=== PATIENT | male | born 1995 | race Caucasian/White ===

== ENCOUNTER 2018-06-28 10:38 | Emergency (ER) | payer MEDICAID ==
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
[2018-06-28 12:38] VITALS: BP 125/80
== END 2018-06-28 12:38 | disposition home or self-care (01) ==
DX: S09.90XA Unspecified injury of head, initial encounter (principal); F17.200 Nicotine dependence, unspecified, uncomplicated; W01.198A Fall on same level from slipping, tripping and stumbling with subsequent striking against other object, initial encounter; Y92.149 Unspecified place in prison as the place of occurrence of the external cause; Y99.8 Other external cause status; Y93.89 Activity, other specified

== ENCOUNTER 2018-06-28 19:02 | Emergency (ER) | payer MEDICAID ==
[2018-06-28 19:08] VITALS: BP 137/88
[2018-06-28] MEDS ORDERED: MECLIZINE HCL 25 MG TAB ONE (19:41)
[2018-06-28] MEDS ORDERED: MECLIZINE HCL 25 MG TAB PO ONE (19:42)
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
== END 2018-06-28 19:56 | disposition home or self-care (01) ==
DX: R42 Dizziness and giddiness (principal); F17.200 Nicotine dependence, unspecified, uncomplicated

== ENCOUNTER 2018-07-01 17:57 | Emergency (ER) | payer MEDICAID ==
--- NOTE | 2018-07-01 19:18 | EDPHY ---
H & P Stated Complaint: Dizzy, Nauseated Time Seen by Provider: 07/01/18 19:17 HPI/ROS: CHIEF COMPLAINT: [ ] HISTORY OF PRESENT ILLNESS: [Need 4: Location, Duration, Severity, Quality, Context, Timing Modifying Factors, Associated S&S] REVIEW OF SYSTEMS: A comprehensive 10 point review of systems is otherwise negative aside from elements mentioned in the history of present illness. Source: Patient - Personal History Current Tetanus Diphtheria and Acellular Pertussis (TDAP): Yes Tetanus Vaccine Date: 2015 - Medical/Surgical History Hx Asthma: No Hx Chronic Respiratory Disease: No Hx Diabetes: No Hx Cardiac Disease: No Hx Renal Disease: No Hx Cirrhosis: No Hx Alcoholism: No Hx HIV/AIDS: No Hx Splenectomy or Spleen Trauma: No Other PMH: TBI 2014 - Social History Smoking Status: Current every day smoker - Physical Exam Exam: General Appearance: [Alert, no distress] Eyes: [Pupils equal and round no pallor or injection] ENT, Mouth: [Mucous membranes moist] Respiratory: [There are no retractions, lungs are clear to auscultation] Cardiovascular: [Regular rate and rhythm] Gastrointestinal: [Abdomen is soft and nontender, no masses, bowel sounds normal] Neurological: [A&O, normal motor function, normal sensory exam, normal cranial nerves] Skin: [Warm and dry, no rashes] Musculoskeletal: [Neck is supple nontender] Extremities: [symmetrical, full range of motion] Psychiatric: [Patient is oriented X 3, there is no agitation] Constitutional: Initial Vital Signs Temperature (C) 36.7 C 07/01/18 18:00 Heart Rate 106 H 07/01/18 18:00 Respiratory Rate 18 07/01/18 18:00 Blood Pressure 148/78 H 07/01/18 18:00 O2 Sat (%) 96 07/01/18 18:00 O2 Delivery Mode Room Air Allergies/Adverse Reactions: No Known Allergies Allergy (Verified 07/01/18 18:02) Home Medications: Medication Instructions Recorded Depakote 06/28/18 Guanfacine HCl ER 06/28/18 Meclizine HCl [Meclizine HCl 25 mg 25 mg PO TID #11 tab 06/28/18 (RX,OTC)] OLANZapine 06/28/18 traZODone 06/28/18 Departure - Departure Referrals: NONE *PRIMARY CARE P,. [Primary Care Provider] - As per Instructions
--- NOTE | 2018-07-01 19:45 | EDPHY ---
H & P Stated Complaint: Dizzy, Nauseated Time Seen by Provider: 07/01/18 19:17 HPI/ROS: CHIEF COMPLAINT: Vertigo HISTORY OF PRESENT ILLNESS: The patient presents to the ED following ongoing vertigo after a minor head injury that occurred several days ago. He was seen in the ED and had a CT scan which demonstrated no evidence of an intracranial hemorrhage. He does have evidence of a fairly significant remote traumatic brain injury. The patient was given meclizine which she has been using with some improvement of his symptoms. He presents today complaining of nausea with his vertigo. The patient denies any neck pain. The patient denies any focal numbness or weakness. The patient denies additional acute complaints. REVIEW OF SYSTEMS: A comprehensive 10 point review of systems is otherwise negative aside from elements mentioned in the history of present illness. Source: Patient - Personal History Current Tetanus Diphtheria and Acellular Pertussis (TDAP): Yes Tetanus Vaccine Date: 2015 - Medical/Surgical History Hx Asthma: No Hx Chronic Respiratory Disease: No Hx Diabetes: No Hx Cardiac Disease: No Hx Renal Disease: No Hx Cirrhosis: No Hx Alcoholism: No Hx HIV/AIDS: No Hx Splenectomy or Spleen Trauma: No Other PMH: TBI 2014 - Social History Smoking Status: Current every day smoker - Physical Exam Exam: General Appearance: Alert, no distress Eyes: Pupils equal and round no pallor or injection ENT, Mouth: Mucous membranes moist Respiratory: There are no retractions, lungs are clear to auscultation Cardiovascular: Regular rate and rhythm Gastrointestinal: Abdomen is soft and nontender, no masses, bowel sounds normal Neurological: A&O, normal motor function, normal sensory exam, normal cranial nerves, GCS 15, no horizontal nystagmus appreciated Skin: Warm and dry, no rashes Musculoskeletal: Neck is supple nontender Extremities: symmetrical, full range of motion Psychiatric: Patient is oriented X 3, there is no agitation Constitutional: Initial Vital Signs Temperature (C) 36.7 C 07/01/18 18:00 Heart Rate 106 H 07/01/18 18:00 Respiratory Rate 18 07/01/18 18:00 Blood Pressure 148/78 H 07/01/18 18:00 O2 Sat (%) 96 07/01/18 18:00 O2 Delivery Mode Room Air Allergies/Adverse Reactions: No Known Allergies Allergy (Verified 07/01/18 18:02) Home Medications: Medication Instructions Recorded Depakote 06/28/18 Guanfacine HCl ER 06/28/18 Meclizine HCl [Meclizine HCl 25 mg 25 mg PO TID #11 tab 06/28/18 (RX,OTC)] OLANZapine 06/28/18 traZODone 06/28/18 Ondansetron Odt [Zofran Odt] 4 mg PO Q4PRN PRN #20 tab 07/01/18 Medical Decision Making ED Course/Re-evaluation: The patient presents to the ED with mild nausea and vertigo in the setting of a recent minor head injury and a fairly significant remote traumatic brain injury. I reviewed the patient's CT scan prior ED workup. I do not feel that additional neuro imaging is indicated at this point time. The patient has no neck complaints and otherwise has a unremarkable neurologic exam. I detect no obvious bruit on exam. The patient will be given a prescription for Zofran. He has been advised to follow up with our concussion specialist for any ongoing symptoms. Departure - Departure Disposition: Home, Routine, Self-Care Clinical Impression: Vertigo Condition: Good Instructions: Vertigo (ED) Additional Instructions: 1. Please follow up with the concussion specialist you have been referred to for any ongoing symptoms of dizziness. 2. You can use Zofran as needed for nausea. 3. Continue meclizine as needed for dizziness. Referrals: Mimi Mg MD [Medical Doctor] - As per Instructions
[2018-07-01 20:04] VITALS: BP 149/81
== END 2018-07-01 20:13 | disposition home or self-care (01) ==
DX: R42 Dizziness and giddiness (principal); R11.0 Nausea; F17.200 Nicotine dependence, unspecified, uncomplicated; Z87.828 Personal history of other (healed) physical injury and trauma

== ENCOUNTER 2018-08-04 18:07 | Emergency (ER) | payer MEDICAID ==
[2018-08-04 18:12] VITALS: BP 116/107
[2018-08-04] MEDS ORDERED: PENICILLIN VK 250MG PREPACK#6 BTL TAKEHOME ONE (18:20)
[2018-08-04] MEDS ORDERED: IBUPROFEN 600 MG TAB PO ONE (18:20)
--- NOTE | 2018-08-04 18:20 | EDPHY ---
H & P Smoking Status: Heavy smoker Time Seen by Provider: 08/04/18 18:13 HPI/ROS: CHIEF COMPLAINT: Dental pain HISTORY OF PRESENT ILLNESS: 22-year-old male presents to the emergency department complaining of chronic dental pain. The patient states that he saw a dentist about a month ago and was going to have some teeth extracted however then ended up in [facility] and is now on a work release program. He has not followed up with a dentist. He has been complaining of pain for at least 1 month or longer. He has a history of an old fractured tooth as well. He has been taking ibuprofen for pain in his requesting a dental referral. ROS: Denies facial swelling, dysphagia, fever. (Angelina Sanabria) Past Medical/Surgical History: Traumatic brain injury, history of substance abuse (Angelina Sanabria) Social History: Single (Angelina Sanabria) Physical Exam: Examination of the patient reveals no apparent distress. He is afebrile and very pleasant. He has no facial swelling. He has poor dentition. He has a fractured tooth right lower 3rd molar. He also has fractured tooth to his right upper 3rd molar. No surrounding gum swelling or say anything to suggest abscess. The left lower 3rd molar reveals small hole in the tooth. No evidence of abscess. No lymphadenopathy. (Angelina Sanabria) Constitutional: Initial Vital Signs Temperature (C) 37.2 C 08/04/18 18:10 Heart Rate 118 H 08/04/18 18:10 Respiratory Rate 18 08/04/18 18:10 Blood Pressure 116/107 H 08/04/18 18:10 O2 Sat (%) 95 08/04/18 18:10 O2 Delivery Mode Room Air Allergies/Adverse Reactions: tree nut Allergy (Severe, Verified 08/05/18 21:40) Anaphylaxis bee venom protein (honey bee) Allergy (Verified 08/05/18 21:40) peanut Allergy (Verified 08/05/18 21:40) Home Medications: Medication Instructions Recorded Depakote 06/28/18 Guanfacine HCl ER 06/28/18 OLANZapine 06/28/18 traZODone 06/28/18 Ibuprofen 600 mg PO TID PRN #30 tablet 08/04/18 Penicillin V Potassium 500 mg PO TID #30 tablet 08/04/18 MDM/Departure - MDM Medications Given: Discontinued Medications Ibuprofen (Motrin) 600 mg PO EDNOW ONE Stop: 08/04/18 18:21 Last Admin: 08/04/18 18:27 Dose: 600 mg Penicillin V Potassium (Pen Vk 250 Mg Prepack#6) 1 btl TAKEHOME EDNOW ONE PRN Reason: Protocol Stop: 08/04/18 18:21 Last Admin: 08/04/18 18:28 Dose: 1 btl ED Course/Re-evaluation: Patient presents with chronic dental pain. He was given dental referral. He will be started on Pen-VK and prescription for ibuprofen. He was encouraged to return to the emergency department if he developed facial swelling, increasing pain, fever, or any other concerns. He was comfortable with this plan. I do not think IV antibiotics are indicated. The patient has no facial swelling. No drainable abscess. His symptoms have been chronic over the last 1 month. (Angelina Sanabria) The patient was evaluated and managed by the Physician Gas Operation Manager. My co- signature indicates that I have reviewed this chart and I agree with the findings and plan of care as documented. I am the secondary supervising physician. (Maryellen Rivas) - Depart Disposition: Home, Routine, Self-Care Clinical Impression: Dental caries, Fractured tooth, Chronic dental pain Condition: Good Instructions: Penicillin V (By mouth), Ibuprofen (By mouth), Toothache (ED) Additional Instructions: Penicillin 3 times daily for 10 days. Warm salt water gargles as discussed. Follow up with a dentist as soon as possible. Return to the emergency department if you develop facial swelling, fever, difficulty swallowing, increasing pain, or if you feel worse in any way. Prescriptions: Ibuprofen 600 mg PO TID PRN #30 tablet PRN Reason: Pain, Moderate Penicillin V Potassium 500 mg PO TID #30 tablet Referrals: [facility] [Outside] - As per Instructions [facility] [Outside] - As per Instructions [facility] [Outside] - As per Instructions [facility] [Outside] - As per Instructions [facility] [Outside] - As per Instructions
== END 2018-08-04 18:31 | disposition home or self-care (01) ==
DX: K08.89 Other specified disorders of teeth and supporting structures (principal)

== ENCOUNTER 2018-08-05 21:34 | Emergency (ER) | payer MEDICAID ==
[2018-08-05 21:42] VITALS: BP 132/81
--- NOTE | 2018-08-05 22:30 | EDPHY ---
H & P Time Seen by Provider: 08/05/18 22:05 HPI/ROS: CHIEF COMPLAINT: Dental pain HISTORY OF PRESENT ILLNESS: 22-year-old male presents to the emergency department complaining of continued chronic dental pain. Seen the ER yesterday given Motrin which alleviated his symptoms. He has been taking Pen-VK as directed. He has not followed up with a dentist however has a list of dentists. He denies: Trismus, drooling, fever, chills, nuchal rigidity. PHYSICAL EXAM (Prior to examination, patient consented to physical exam, hands were washed and my usual and customary physical exam procedures followed) 1) GENERAL: Well-developed, well-nourished, alert and oriented. Appears to be in no acute distress. 2) HEAD: Normocephalic 3) HEENT: sclera anicteric . Poor dentition. Fractured tooth right lower 3rd molar. Fractured tooth right upper 3rd molar. No signs of gingivitis however, no signs of abscess. Floor of mouth is soft no evidence of Owen's angina. Submandibular and submental spaces are soft. No induration. 4) LUNGS: Breathing comfortably. Smoking Status: Heavy smoker Constitutional: Initial Vital Signs Temperature (C) 36.5 C 08/05/18 21:40 Heart Rate 92 08/05/18 21:40 Respiratory Rate 18 08/05/18 21:40 Blood Pressure 132/81 H 08/05/18 21:40 O2 Sat (%) 96 08/05/18 21:40 O2 Delivery Mode Room Air Allergies/Adverse Reactions: tree nut Allergy (Severe, Verified 08/05/18 21:40) Anaphylaxis bee venom protein (honey bee) Allergy (Verified 08/05/18 21:40) peanut Allergy (Verified 08/05/18 21:40) Home Medications: Medication Instructions Recorded Depakote 06/28/18 Guanfacine HCl ER 06/28/18 OLANZapine 06/28/18 traZODone 06/28/18 Ibuprofen 600 mg PO TID PRN #30 tablet 08/04/18 Penicillin V Potassium 500 mg PO TID #30 tablet 08/04/18 MDM/Departure - MDM Medications Given: Discontinued Medications Hydrocodone Bitart/Acetaminophen ([place] 5/325mg Prepack#6) 1 btl TAKEHOME EDNOW ONE Stop: 08/05/18 22:33 Last Admin: 08/05/18 22:39 Dose: 1 btl Ibuprofen (Motrin) 800 mg PO EDNOW ONE Stop: 08/05/18 22:32 Last Admin: 08/05/18 22:39 Dose: 800 mg ED Course/Re-evaluation: Doubt deep space infection. Doubt Owen's angina. Continue antibiotics. Given small prescription for take-home Chilton and strongly encouraged and recommended follow up with dentist. He feels comfortable with this plan. I saw this patient independently based on established practice protocols. Care of patient under supervision of secondary supervising physician Dr Weems . - Depart Disposition: Home, Routine, Self-Care Clinical Impression: Odontalgia Condition: Good Instructions: Hydrocodone/Acetaminophen (By mouth), Toothache (ED) Additional Instructions: Return to the ER immediately if you cannot swallow, have drooling, fevers, neck stiffness, cannot open your jaw, or any other symptoms that concern you. Referrals: [facility] [Outside] - As per Instructions [facility] [Outside] - As per Instructions [facility] [Outside] - As per Instructions [facility] [Outside] - As per Instructions [facility] [Outside] - As per Instructions
[2018-08-05] MEDS ORDERED: IBUPROFEN 800 MG TAB PO ONE (22:31)
[2018-08-05] MEDS ORDERED: HYDROCOD/APAP 5/325 PREPACK#6 BTL TAKEHOME ONE (22:32)
== END 2018-08-05 22:42 | disposition home or self-care (01) ==
DX: K08.89 Other specified disorders of teeth and supporting structures (principal); F17.200 Nicotine dependence, unspecified, uncomplicated

== ENCOUNTER 2018-10-18 19:37 | Emergency (ER) | payer MEDICAID ==
--- NOTE | 2018-10-18 20:01 | EDPHY ---
HPI/HX/ROS/PE/MDM Narrative: CHIEF COMPLAINT: "I just passed out walking. It was a quick one" HPI: The patient is a 22 y/o male with a history of TBI and methamphetamine abuse who arrives from his job for evaluation of a syncopal event this evening around 19:00. 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 His curriculum manager sent him to the ED for evaluation, but he says otherwise he would not have come. He denies trauma from the incident. No chest pain at any point. No fever. He denies history of cardiac issues. REVIEW OF SYSTEMS: A comprehensive 10 system review of systems is otherwise negative aside from elements mentioned in the history of present illness. PMH: TBI, methamphetamine abuse SOCIAL HISTORY: Lives in [place]. Employed at [employer]. PHYSICAL EXAM: General:Patient is alert, in no acute distress. ENT:Eyes are normal to inspection. ENT inspection normal. Neck: Normal inspection. Full range of motion. Respiratory:No respiratory distress. Breath sounds normal bilaterally. Cardiovascular: Regular rate and rhythm. Strong peripheral pulses. Normal cap refill. Abdomen:The abdomen is nontender to palpation. There are no peritoneal signs. Back: Normal to inspection. No tenderness to palpation. Skin: Normal color. No rash. Warm and dry. Extremities: Normal appearance. Full range of motion. Neuro: Oriented x3. Normal motor function. Normal sensory function. ED Course: This is a 22 y/o male with a history of TBI and methamphetamine abuse who presents at the request of his curriculum manager after a syncopal episode at work. He is reluctant to have any work up performed and reports these episodes happen frequently. He consents to an EKG only. The 12 lead EKG was interpreted by myself. Sinus mechanism. Short [place] interval. See hard copy and/or "tracemaster" electronic copy for interpretation. Reevaluated patient and discussed findings. He is eager to leave. Recommended following up with cardiology. Return precautions discussed. General Time Seen by Provider: 10/18/18 19:45 Initial Vital Signs: Initial Vital Signs Temperature (C) 36.7 C 10/18/18 19:42 Heart Rate 86 11/17/18 19:42 Respiratory Rate 20 10/18/18 19:42 Blood Pressure 127/72 H 10/18/18 19:42 O2 Sat (%) 97 10/18/18 19:42 O2 Delivery Mode Room Air Allergies/Adverse Reactions: tree nut Allergy (Severe, Verified 10/18/18 19:41) Anaphylaxis bee venom protein (honey bee) Allergy (Verified 10/18/18 19:41) peanut Allergy (Verified 10/18/18 19:41) Home Medications: Medication Instructions Recorded Depakote 06/28/18 Guanfacine HCl ER 06/28/18 OLANZapine 06/28/18 traZODone 06/28/18 Ibuprofen 600 mg PO TID PRN #30 tablet 08/04/18 Penicillin V Potassium 500 mg PO TID #30 tablet 08/04/18 Departure - Departure Disposition: Home, Routine, Self-Care Clinical Impression: Shortened [place] interval Syncope Qualifiers: Syncope type: unspecified Qualified Code(s): R55 - Syncope and collapse Condition: Good Instructions: Syncope (ED) Additional Instructions: Please follow up with cardiology in the next week for further evaluation of the shortened [place] interval seen on your EKG today. Return to the ED for any worsening of condition. Referrals: Souleymane Larry MD [Medical Doctor] - As per Instructions Report Scribed for: Lane Mora Report Scribed by: Laura Brown Date of Report: 10/18/18 Time of Report: 20:01 Physician Review and Approval Statement: Portions of this note were transcribed by an ED scribe. I personally performed the history, physical exam, and medical decision making; and confirm the accuracy of the information in the transcribed note.
[2018-10-18 20:17] VITALS: BP 123/67
--- NOTE | 2018-10-18 23:01 | CPEKG ---
Test Reason : OPEN Blood Pressure : / mmHG Vent. Rate : 072 BPM Atrial Rate : 072 BPM P-R Int : 108 ms QRS Dur : 099 ms QT Int : 382 ms P-R-T Axes : 037 053 014 degrees QTc Int : 419 ms Sinus rhythm Short [place] interval Confirmed by Lane Mora ([id number]) on 10/18/2018 11:01:13 PM Referred By: Confirmed By:Lane Mora
== END 2018-10-18 20:17 | disposition home or self-care (01) ==
DX: R55 Syncope and collapse (principal); Z87.820 Personal history of traumatic brain injury; F17.200 Nicotine dependence, unspecified, uncomplicated

== ENCOUNTER 2018-11-05 22:14 | Emergency (ER) | payer MEDICAID ==
[2018-11-05] MEDS ORDERED: methylPREDNISolone SOD SUCC 125 MG/2 ML VIAL IVP ONE (22:29)
[2018-11-05] MEDS ORDERED: RANITIDINE 50 MG/2 ML VIAL IVP ONE (22:29)
[2018-11-05] MEDS ORDERED: NS 1,000 ML IV ONE (22:29)
--- NOTE | 2018-11-05 22:30 | EDPHY ---
General - History Smoking Status: Heavy smoker Time Seen by Provider: 11/05/18 22:25 Narrative: CHIEF COMPLAINT: Allergic reaction HISTORY OF PRESENT ILLNESS: Patient presents by private vehicle with complaints of allergic reaction. He states that at 9:45 a.m. P.m. He accidentally ingested some food that may have had peanuts in it. He has a reported anaphylactic response to peanuts in the past. Since then he has felt some itching of his tongue and itching on the arms and hands. It has remained steady and not worsened. He has no difficulty breathing or swelling. No shortness of breath. No drooling. No trismus. No headache. He did not uses epinephrine pen. He did not take any medications. No other associated complaints or modifying factors. REVIEW OF SYSTEMS: 10 systems were reviewed and negative with the exception of the elements mentioned in the history of present illness. PCP: [facility] SPECIALISTS: None currently PAST MEDICAL HISTORY: TBI. Previous substance abuse PAST SURGICAL HISTORY: No recent surgical history SOCIAL HISTORY: Nonsmoker. Lives independently. Currently on work release FAMILY HISTORY: Noncontributory EXAMINATION: Vitals: Triage VS reviewed General Appearance: Alert, no distress. Well appearing. Normal conversation. Head: normocephalic, atraumatic Eyes: Pupils equal and round, no conjunctival pallor or injection ENT, Mouth: Mucous membranes moist. The uvula is midline. The airway is widely patent. There is no edema of the lips or tongue. No trismus. No drooling. Neck: Normal inspection, supple, non-tender Respiratory: Lungs are clear to auscultation Cardiovascular: Regular rate and rhythm Gastrointestinal: Abdomen is soft and nontender Back: non-tender, no bony abnormalities Neurological: A&O, nonfocal, normal gait Skin: Warm and dry. Multiple tattoos. Mild urticaria to the dorsum of the hands. No rash elsewhere on his person. Extremities: Nontender, no pedal edema Psychiatric: Mood and affect normal DIFFERENTIAL DIAGNOSES: Including but not limited to allergic reaction, anaphylaxis MDM: 10:25 p.m. Mild acute allergic reaction with no evidence of anaphylaxis. His airway is widely patent. He is conversing in full sentences. There is no drooling or trismus. No stridor. I do not feel he warrants epinephrine at this time, but he will have an IV established. I have ordered Benadryl, Solu-Medrol, Zantac and IV fluid. He will be monitor closely. 11:40 p.m. Patient re-evaluated. He is feeling significantly better. He has no complaints involving the oropharynx. He has no itching or rash. I re-examined him and there is no edema of the airway. He is conversing in full sentences. No stridor. No trismus. We discussed discharge home with ongoing Benadryl and Zantac. We discussed 1 additional dose of Decadron tomorrow. He has an epinephrine pen on him and he will keep this. We discussed ED precautions and he is comfortable this plan. Discharged home stable condition. SUPERVISION: This patient was independently evaluated without direct involvement of or examination by the attending physician. CONSULTATION: None (Hebert Rivera) PHYSICIAN DOCUMENTATION: The patient was evaluated and managed by the Physician Tie Tape Machine Operator. My co- signature indicates that I have reviewed this chart and I agree with the findings and plan of care as documented. I am the secondary supervising physician. (Kassidy Aggarwal) - Objective Vital Signs: Initial Vital Signs Temperature (C) 36.8 C 11/05/18 22:20 Heart Rate 103 H 11/05/18 22:20 Respiratory Rate 20 11/05/18 22:20 Blood Pressure 129/102 H 11/05/18 22:20 O2 Sat (%) 96 11/05/18 22:20 O2 Delivery Mode Room Air Allergies/Adverse Reactions: tree nut Allergy (Severe, Verified 11/05/18 22:19) Anaphylaxis bee venom protein (honey bee) Allergy (Verified 11/05/18 22:19) peanut Allergy (Verified 11/05/18 22:19) Home Medications: Medication Instructions Recorded Depakote 06/28/18 Guanfacine HCl ER 06/28/18 OLANZapine 06/28/18 traZODone 06/28/18 Ibuprofen 600 mg PO TID PRN #30 tablet 08/04/18 Dexamethasone [Decadron 4 MG (*)] 8 mg PO ONCE #2 tab 11/05/18 Medications Given: Discontinued Medications Diphenhydramine HCl (Benadryl Injection) 50 mg IVP EDNOW ONE Stop: 11/05/18 22:30 Last Admin: 11/05/18 22:39 Dose: 50 mg Sodium Chloride (Ns) 1,000 mls @ 0 mls/hr IV ONCE ONE; Wide Open PRN Reason: Protocol Stop: 11/05/18 22:30 Last Admin: 11/05/18 22:38 Dose: 1,000 mls Methylprednisolone Sodium Succinate (Solu-Medrol) 125 mg IVP EDNOW ONE Stop: 11/05/18 22:30 Last Admin: 11/05/18 22:39 Dose: 125 mg Ranitidine HCl (Zantac) 50 mg IVP EDNOW ONE Stop: 11/05/18 22:30 Last Admin: 11/05/18 22:39 Dose: 50 mg Departure - Departure Disposition: Home, Routine, Self-Care Clinical Impression: Allergic reaction Qualifiers: Encounter type: initial encounter Qualified Code(s): T78.40XA - Allergy, unspecified, initial encounter Condition: Good Instructions: Urticaria (ED), Food Allergy (ED) Additional Instructions: 1. Benadryl 25-50 mg every 6 hr as needed for rash or itching 2. Zantac [id number] every 12 hr for the next 3-5 days 3. Decadron x1 tomorrow morning. You will need to get this at the pharmacy 4. Use or epinephrine pain if he develops any swelling of the lips or tongue, difficulty breathing or drooling, chest pain or shortness of breath Referrals: [facility],. [Clinic] - As per Instructions Prescriptions: Dexamethasone [Decadron 4 MG (*)] 8 mg PO ONCE #2 tab
[2018-11-06 00:08] VITALS: BP 116/74
== END 2018-11-06 00:08 | disposition home or self-care (01) ==
DX: T78.40XA Allergy, unspecified, initial encounter (principal); Z91.010 Allergy to peanuts; Z91.018 Allergy to other foods
CPT/HCPCS: 96374; J1200; J2780; J2930

== ENCOUNTER 2018-12-29 11:28 | Emergency (ER) | payer MEDICAID ==
[2018-12-29] MEDS ORDERED: SULFAMETHOX/TMP 800/160 MG 1 TAB PO ONE (13:46)
--- NOTE | 2018-12-29 13:46 | EDPHY ---
General Time Seen by Provider: 12/29/18 13:00 Narrative: CLINICAL IMPRESSION: Gluteal cleft abscess with overlying cellulitis ASSESSMENT/PLAN: Patient is a 23-year-old male who presents with buttock pain. Patient is afebrile and not toxic appearing, no acute distress. Physical exam reveals left gluteal cleft abscess with associated cellulitis; no history of pilonidal disease. There was no evidence of systemic infection, fistula, perirectal involvement, necrotizing skin infection or deep space infection. Patient also reports traumatic injury yesterday which exacerbated his pain, his pain is located at his abscess site only, there is no pain at his distal coccyx. I have a very low suspicion for acute fracture. The abscess was incised and drained as discussed in the procedure note, the patient tolerated this well. There was a small piece of wick left in place. The patient was given his 1st dose of Bactrim and will continue for the next 7 days; no history of MRSA infections. He is well established at [facility] and will schedule an appointment for repeat examination in 2 days. He will continue local wound care and warm compress. Return precautions discussed- will return for fever, redness, swelling, warmth, or streaking around the wound, new lesions, extremity swelling, pain out of proportion or for any other new, worsening or worrisome symptoms. Patient verbalizes understanding and he is in agreement with plan. DIFFERENTIAL DX: Cellulitis, abscess, traumatic injury, deep space infection, necrotizing skin infection ED PROCEDURES: Procedure: Abscess drainage. The patient's abscess was located on the left gluteal cleft. I obtained verbal consent from the patient to drain the abscess who was informed about the possibility of bleeding and pain. The abscess was incised with a scalpel and a moderate amount of purulent drainage was expressed. I irrigated the wound and placed some packing. The patient tolerated the procedure well. The procedure was performed by myself. ED COURSE: 1335: Discussed case with Dr. Hugo. CHIEF COMPLAINT: Buttock pain HPI: Patient is a 23-year-old male with no significant medical history who presents to the emergency department complaining of upper buttock pain. Patient reports about a week ago he started to experience some generalized pain in his upper buttocks, no trauma. Yesterday he reports falling and having an increase in the pain at the site. He denies any previous injury or issues, no history of pilonidal disease. Patient denies any open wounds or drainage. He denies any perirectal pain or difficulty with bowel movements. He has had no fever, chills , nausea, vomiting or abdominal pain. Also denies any testicular pain or swelling. He has not tried taking anything for pain, he has not been able to visualize the area. PAST MEDICAL HISTORY: Denies Pertinent Past Surgical History: Denies Family History: Noncontributory Social History: Current everyday smoker, denies illicit drug use. ROS: A full 10 point review of systems was negative except for those mentioned in HPI. PHYSICAL EXAM: General Appearance: Patient is well-appearing, no acute distress. HENT: Normocephalic, atraumatic. TMs are clear bilaterally no perforation or FB, no injection, no evidence of serous or mucopurulent otitis. Oropharynx clear is no erythema or exudates, no tonsillar hypertrophy or asymmetry. Eyes: PERRLA, no acute vision change, nystagmus, swelling, discharge, pain or photosensitivity. Conjunctiva pink, no pallor or injection. Neck: Supple, nontender, no lymphadenopathy, no midline pain, FROM, no meningismus. Respiratory: There are no retractions, lungs are clear to auscultation. Cardiac: Regular rate and rhythm, no murmurs or gallops. Gastrointestinal: Abdomen is soft, nontender, bowel sounds normal, no masses/ hernia, no rigidity, guarding or focal peritoneal findings. Skin: Warm, dry. Genitourinary: Exam performed with [employer] at bedside. Patient placed in a prone position, the gluteal cleft with abscess on the left side, overlying erythema and calor. Mild fluctuance centrally. There are no perirectal regions , no tenderness to palpation. No evidence of fistula. MEDICAL DECISION MAKING: Patient was seen independently. Secondary supervising physician at time of evaluation was Dr. Hugo, he did not evaluate this patient however we discussed case and plan of care. Diagnosis: Gluteal cleft abscess with overlying cellulitis. New, requires workup Summary: See Assessment and Plan for summary of ED visit Clinical lab tests: Not applicable. Independent visualization of images, tracing, or specimens: No. Decision to obtain medical records or history from someone other than the patient: No Review / Summarize previous medical records: No Discussed patient with another provider: Yes, Dr. Hugo Patient Progress: Stable, discharge. - History Smoking Status: Heavy smoker - Objective Vital Signs: Initial Vital Signs Temperature (C) 36.9 C 12/29/18 11:33 Heart Rate 91 12/29/18 11:33 Respiratory Rate 18 12/29/18 11:33 Blood Pressure 116/68 12/29/18 11:33 O2 Sat (%) 98 12/29/18 11:33 O2 Delivery Mode Room Air Allergies/Adverse Reactions: tree nut Allergy (Severe, Verified 12/29/18 11:31) Anaphylaxis bee venom protein (honey bee) Allergy (Verified 12/29/18 11:31) peanut Allergy (Verified 12/29/18 11:31) Home Medications: Medication Instructions Recorded Depakote 06/28/18 OLANZapine 06/28/18 traZODone 06/28/18 Sulfamethox/Tmp 800/160 mg 1 tab PO BID #14 tab 12/29/18 [Bactrim Ds] Medications Given: Discontinued Medications Trimethoprim/Sulfamethoxazole (Bactrim Ds) 1 ea PO EDNOW ONE PRN Reason: Protocol Stop: 12/29/18 13:47 Last Admin: 12/29/18 13:48 Dose: 1 ea Departure - Departure Disposition: Home, Routine, Self-Care Clinical Impression: Abscess, gluteal cleft, Cellulitis and abscess of buttock Condition: Good Instructions: Cellulitis (ED), Abscess (ED) Additional Instructions: DISCHARGE INSTRUCTIONS FROM YOUR DOCTOR Thank you for visiting our emergency department today. Please keep in mind that discharge from the emergency department does not mean that there is nothing wrong - it simply means that we have not identified an emergency condition that requires further evaluation or treatment in the hospital. You should always plan to follow up with primary care for re-evaluation of your condition in the next 2-3 days. I would like you to be seen and evaluated at [facility] in 48 hr for a wound check. A wick was left in place where abscess was found, your found to have an abscess in her gluteal cleft. A small amount of this material can be removed daily, otherwise keep dry. You may shower with regular soap and water. Please take your antibiotics as directed. For pain control: You may take Tylenol, I recommend 500-1000 mg every 6-8 hours as needed. Take with food and a full glass of water. Stop taking if this is upsetting her stomach. Do not exceed 4000 mg in a 24 hr period. You may also take ibuprofen, recommend 400 mg every 6 hr. Take with food and a full glass of water. Stop taking if this upsets her stomach. Do not exceed 2400 mg in a 24 hr period. Please take your antibiotics as directed, you may want to take a probiotic as this can cause diarrhea. People present with illnesses and injuries in different ways, and it is always possible that we have missed something. You may always return for re-evaluation if symptoms worsen or if they are not improving or if you develop new/different symptoms. Again, thank you for choosing our emergency department. We hope that you feel better. Referrals: NONE *PRIMARY CARE P,. [Primary Care Provider] - 1-2 days without fail (Please follow-up with [facility] as we discussed. Call today to make an appointment. ) Prescriptions: Sulfamethox/Tmp 800/160 mg [Bactrim Ds] 1 tab PO BID #14 tab
[2018-12-29 13:50] VITALS: BP 130/78
[2018-12-29] MEDS ORDERED: SULFAMETHOX/TMP 800/160 MG 1 TAB ONE (13:58)
== END 2018-12-29 13:59 | disposition home or self-care (01) ==
PROC: 0H98XZZ Drainage of Buttock Skin, External Approach (ICD-10-PCS; principal; 2018-12-29)
DX: L02.31 Cutaneous abscess of buttock (principal); L03.317 Cellulitis of buttock